=== PATIENT | female | born 1960 | race American Indian/Alaskan Native ===

== ENCOUNTER 2021-08-25 09:23 | Outpatient (CLI) | payer OTHER ==
--- NOTE | 2021-08-25 11:30 | XRay Report ---
RIGHT KNEE 2 VIEW(S) INDICATION / CLINICAL INFORMATION: RIGHT KNEE PAIN COMPARISON: None available. FINDINGS: BONES / JOINT(S): No acute fracture or subluxation. Mild medial compartment joint space narrowing. Ot herwise, no significant degenerative change. SOFT TISSUES: No significant abnormality. ADDITIONAL FINDINGS: None. Signer Name: Jose Gamez MD Signed: 08/25/2021 11:26 AM Workstation Name: [email or web address]
== END 2021-08-25 09:24 | disposition home or self-care (01) ==
LOC: XRAY 09:23
PROVIDERS: ATTEND Internal Medicine
DX: M25.561 Pain in right knee (principal)